=== PATIENT | female | born 1960 | race African-American/Black ===

== ENCOUNTER → 2018-05-04 13:54 | Outpatient (CLI) | payer OTHER, SELFPAY ==
--- NOTE | 2018-05-04 | DI.MG.S_ITS ---
BILATERAL DIGITAL SCREENING MAMMOGRAM 3D/2D WITH CAD: 05/04/2018 CLINICAL: Routine screening. Comparison is made to exam dated: [facility]. There are scattered fibroglandular elements in both breasts. Current study was also evaluated with a Computer Aided Detection (CAD) system. No significant masses, calcifications, or other findings are seen in either breast. There has been no significant interval change. IMPRESSION: NEGATIVE There is no mammographic evidence of malignancy. A 1 year screening mammogram is recommended. This exam was interpreted at Station ID: [id number]. NOTE: For mammograms, a report in lay terms will be sent to the patient. Approximately 15% of breast malignancies will not be visualized mammographically. In the management of a palpable breast mass, a negative mammogram must not discourage biopsy of a clinically suspicious lesion. Electronically Signed By: Gera mercado/olivia:05/04/2018 16:48:27 letter sent: Normal Exam ACR BI-RADS Category 1: Negative 3341F
== END ==
PROVIDERS: Visit Provider Family Medicine
DX: Z12.31 Encounter for screening mammogram for malignant neoplasm of breast (principal)
CPT/HCPCS: 77063; 77067

== ENCOUNTER → 2019-06-25 12:16 | Outpatient (CLI) | payer OTHER, SELFPAY ==
--- NOTE | 2019-06-25 12:19 | DI.MG.S_ITS ---
BILATERAL DIGITAL DIAGNOSTIC MAMMOGRAM 3D/2D: 06/25/2019 CLINICAL: Right breast lump. Comparison is made to exams dated: 05/04/2018 mammogram and 03/04/2016 mammogram - [facility]. The tissue of both breasts is heterogeneously dense. This may lower the sensitivity of mammography. No significant masses, calcifications, or other findings are seen in either breast. IMPRESSION: INCOMPLETE: NEEDS ADDITIONAL IMAGING EVALUATION There is no mammographic abnormality seen in the right breast to correspond with the pain, however, targeted ultrasound of the right breast is recommended and will be performed immediately following this exam. This exam was interpreted at Station ID: [id number]. NOTE: For mammograms, a report in lay terms will be sent to the patient. Approximately 15% of breast malignancies will not be visualized mammographically. In the management of a palpable breast mass, a negative mammogram must not discourage biopsy of a clinically suspicious lesion. Electronically Signed By: Eryn German M.D. lk/:06/25/2019 13:44:12 ACR BI-RADS Category 0: Incomplete 3340F
--- NOTE | 2019-06-25 12:19 | DI.US.S_ITS ---
ULTRASOUND OF RIGHT BREAST: 06/25/2019 CLINICAL: Right breast lump. Comparison is made to exams dated: 06/25/2019 mammogram, 05/04/2018 mammogram, 03/04/2016 ultrasound, and 03/04/2016 mammogram - [facility]. Ultrasound of the right breast was performed on the area of interest. Guiterrez scale images of the real-time examination were reviewed. IMPRESSION: NEGATIVE There is no sonographic evidence of malignancy. There is no mammographic or sonographic abnormality seen in the right breast to correspond with the palpable abnormality and pain, however, clinical followup is recommended. A 1 year screening mammogram is recommended. This exam was interpreted at Station ID: [id number]. Electronically Signed By: Eryn narayan/:06/25/2019 14:18:58 letter sent: Clinical Evaluation Ultrasound BI-RADS: 1 Negative
[2019-06-27 15:59] LABS: Fecal Immunochemical Test NOT DETECTED (NOT DETECTED)
== END ==
PROVIDERS: PCP Student in an Organized Health Care Education/Training Program; Referring Provider Student in an Organized Health Care Education/Training Program; Visit Provider Student in an Organized Health Care Education/Training Program
DX: R92.8 Other abnormal and inconclusive findings on diagnostic imaging of breast (principal); N63.10 Unspecified lump in the right breast, unspecified quadrant; Z12.11 Encounter for screening for malignant neoplasm of colon
CPT/HCPCS: 76642; 77066; 82274; G0279

== ENCOUNTER → 2019-07-29 10:05 | Outpatient (CLI) | payer OTHER, SELFPAY ==
[2019-07-29 11:53] LABS: Free T4, Direct Thyroxine 0.19 ng/dL (0.78-2.19)
[2019-07-30 08:37] LABS: Dehydroepiandrosterone Sulfate 74.2 ug/dL (29.4-220.5)
[2019-08-01 07:12] LABS: Percent Free Testosterone 1.56 % (0.50-2.80); Testosterone Free 0.16 ng/dL (0.10-0.85); Testosterone Total 10.4 ng/dL (.)
== END ==
PROVIDERS: PCP Student in an Organized Health Care Education/Training Program; Referring Provider Student in an Organized Health Care Education/Training Program; Visit Provider Student in an Organized Health Care Education/Training Program
DX: E03.9 Hypothyroidism, unspecified (principal); L66.1 Lichen planopilaris
CPT/HCPCS: 36415; 82627; 84402; 84403; 84439; 84443

== ENCOUNTER → 2019-10-10 09:55 | Outpatient (CLI) | payer OTHER, SELFPAY ==
[2019-10-10 11:49] LABS: TSH w/ Reflex to FT4 0.06 uIU/mL (0.47-4.68)
[2019-10-10 12:18] LABS: Free T4, Direct Thyroxine 1.71 ng/dL (0.78-2.19)
== END ==
PROVIDERS: PCP Student in an Organized Health Care Education/Training Program; Referring Provider Student in an Organized Health Care Education/Training Program; Visit Provider Student in an Organized Health Care Education/Training Program
DX: E03.9 Hypothyroidism, unspecified (principal)
CPT/HCPCS: 36415; 84439; 84443

== ENCOUNTER 2020-02-10 08:49 | Emergency (ER) | payer OTHER, SELFPAY ==
[2020-02-10 08:59] VITALS: BP 159/107; PULSE 88; RESP 14; TEMP 36.9; O2SAT 100; BMI 26.1
--- NOTE | 2020-02-10 09:15 | ED_ITS ---
HPI - Wound/Laceration General Chief Complaint: Wound/Laceration Stated Complaint: busted lip Time Seen by Provider: 02/10/20 08:54 Source: patient and family Mode of arrival: Ambulatory History of Present Illness HPI narrative: Patient here with . Sent here from urgent care. Patient has right lower lip laceration inside/mucosal surface. Does not not not cross the vermilion border. It is not through and through. Tetanus up-to-date less than 1 year. Denies any other injuries. Patient was caring a mere and fail. She kept the mere above her to prevent falling on top of her and breaking. She states the corner of the mere did gouge her lower lip. Denies any other injuries. No bleeding at this time Related Data Home Medications Medication Instructions Recorded Confirmed Liver supplement PO DAILY 06/18/19 02/10/20 Skin and nails supp PO BID 06/18/19 02/10/20 ascorbic acid (vitamin C) 100 mg 100 mg PO DAILY 06/18/19 02/10/20 tablet cholecalciferol (vitamin D3) 25 1,000 unit PO BID cap 06/18/19 02/10/20 mcg (1,000 unit) capsule mecobalamin (vitamin B12) 1,000 1,000 mcg PO BID tab 06/18/19 02/10/20 mcg chewable tablet omega-3 fatty acids 1,000 mg 1,000 mg PO BID 06/18/19 02/10/20 capsule symbiotic probiotics PO DAILY 06/18/19 02/10/20 Previous Rx's Medication Instructions Recorded atenolol 25 mg tablet 25 mg PO BID #60 tab 10/10/19 finasteride 5 mg tablet 2.5 mg PO .every other day #30 tab 10/10/19 levothyroxine 88 mcg tablet 88 mcg PO DAILY #90 tab 10/11/19 diclofenac sodium 1 % topical gel 2 gram TOP QID #100 gram 10/17/19 Allergies Allergy/AdvReac Type Severity Reaction Status Date / Time codeine [CODEINE] Allergy Unknown Unverified 02/10/20 08:32 latex [LATEX] Allergy Unknown Unverified 02/10/20 08:32 Sulfa (Sulfonamide Allergy Unknown Unverified 02/10/20 08:32 Antibiotics) [SULFA (SULFONAMIDE ANTIBIOTICS)] Review of Systems Review of Systems Narrative: GENERAL: Denies chills, fatigue, malaise, fever, sweats. HEENT: Denies sinus pain, ear pain, sore throat, difficulty swallowing, complains of laceration to right lower lip. RESPIRATORY: Denies dyspnea, cough CARDIOVASCULAR: Denies chest pain, palpitations, edema, GASTROINTESTINAL: Denies nausea, vomiting, abdominal pain, diarrhea, constipation, melena. MUSCULOSKELETAL: denies muscle or bony pain SKIN: Denies rash, skin lesions NEUROLOGIC: Denies weakness, headache, numbness, change in speech, confusion PSYCHIATRIC: No SI or HI or hallucinations ROS Unobtainable: All systems reviewed & are unremarkable except as noted in HPI and below Patient History Medical History Fibroids (Inactive) Hemorrhoid (Inactive ~1987) Lip laceration (Acute) Ovarian cyst (Inactive) Shoulder pain (Inactive) Surgical History Status post breast biopsy Status post delivery Status post laparoscopic hysterectomy (Resolved) Family History Grandfather Cancer Sister Age: 59 Mental health problem Social History Smoking Status: Never smoker Smoking Status: Never smoker alcohol intake frequency: 0-2 drinks per day Substance Use Type: does not use Exam Narrative Exam Narrative: GENERAL: patient appears stated age. Well-nourished, well- developed patient, in no distress, not toxic not dyspneic HEAD: Normocephalic. Atraumatic EYES: Pupils equal round and reactive. No scleral icterus. No injection no discharge ENT: Mucous membranes moist. No drooling no tongue elevation no trismus no malocclusion, mild tenderness to left lower front incisor but no fracture. No surrounding gum bruising bleeding or laceration. Examination of the lips. At the right lower lip proximal to the vermilion border, does not cross the vermilion border, there is a 1.5 cm triangular flap like laceration that is superficial. Q-tip used to explore wound. Bloodless field. Based visualized. No muscle injury seen. No foreign body. Laceration edges aligned evenly. Irrigated with normal saline. No bleeding. NEURO: AOx4. SKIN: Warm and dry PSYCH: Patient anxious. Blood pressure noted. Initial Vital Signs Initial Vital Signs: Vital Signs Temperature 98.4 F 02/10/20 08:59 Pulse Rate 88 02/10/20 08:59 Respiratory Rate 14 02/10/20 08:59 Blood Pressure 159/107 H 02/10/20 08:59 Pulse Oximetry 100 02/10/20 08:59 Course Course Course Narrative: Paged out to ENT, awaiting call back. Patient is not want wait for call back. Desires discharge home. 9:25 a.m. Reevaluation(s) Reevaluation #1: Patient much more comfortable less anxious after discussion about wound care and understands no stitching for mucosal layer. She is comfortable with wound care at home. And follow-up. Time: 09:23 Consultations Consultation #1: Spoke with ent, Dr. logan, agrees with treatment plan follow-up this week. No stitches Time: 09:32 Vital Signs Vital signs: Vital Signs - 8 hr 02/10/20 08:59 Temperature 98.4 F Pulse Rate 88 Respiratory Rate 14 Blood Pressure 159/107 H Pulse Oximetry 100 MDM - Wound/Laceration Differential Diagnosis Differential diagnosis: Likely avulsion of skin MDM Narrative Medical decision making narrative: Patient and agree with wound care and treatment plan. Understands no stitching at this time. Does not cross the vermilion border and is on mucosal surface which has risk of tearing and returning with any stitches. Reviewed with patient wound irrigation with normal saline. Patient given saline flushes. She will continue at home. No antibiotics indicated this time. No imaging indicated this time. Based visualized no foreign body. Mirror did not break in her mouth. Denies any other injuries. Appropriate for discharge home. Discharge Plan Departure Patient Disposition: Home Clinical Impression: Lip laceration Qualifiers: Encounter type: initial encounter Qualified Code(s): S01.511A - Laceration without foreign body of lip, initial encounter Discharge Date/Time: 02/10/20 09:35 Instructions: DI for Avulsion Laceration (Not Requiring Sutures) Activity Restrictions/Additional Instructions: Called provided office today for office recheck this week. Continue with soft foods. No crunchy or hard foods. Irrigate/use saline flush to the wound after each meal and as needed to keep wound free of debris/food products. Keep wound out of sun exposure. Return if worse or if any questions or concerns. Phone number for Dr. Tony as well as Dr. Giraldo given. They are in the same office Prescriptions: No Action mecobalamin (vitamin B12) 1,000 mcg tablet,chewable 1,000 mcg PO BID RF: 0 cholecalciferol (vitamin D3) 25 mcg (1,000 unit) capsule 1,000 unit PO BID RF: 0 Skin and nails supp PO BID RF: 0 Liver supplement PO DAILY RF: 0 omega-3 fatty acids [Fish Oil Concentrate] 1,000 mg capsule 1,000 mg PO BID RF: 0 symbiotic probiotics PO DAILY RF: 0 ascorbic acid (vitamin C) 100 mg tablet 100 mg PO DAILY RF: 0 levothyroxine 88 mcg tablet 88 mcg PO DAILY Qty: 90 RF: 3 diclofenac sodium 1 % gel 2 gram TOP QID Qty: 100 RF: 0 atenolol 25 mg tablet 25 mg PO BID Qty: 60 RF: 0 finasteride 5 mg tablet 2.5 mg PO .every other day Qty: 30 RF: 3 Referrals: Jonathan Alvares MD [Primary Care Provider] - Jonathan Tony MD [Physician] - Bunny Giraldo MD [Physician] -
--- NOTE | 2020-02-10 09:33 | PC.NURSE ---
wound flushed with saline flushed by provider. Patient instructed to keep clean and wound will heal on its own. a hand full of flushes given to patient per Dr jordan to keep wound clean with.
== END 2020-02-10 09:35 | disposition home or self-care (01) ==
PROVIDERS: Emergency Provider Emergency Medicine; PCP Student in an Organized Health Care Education/Training Program
DX: S01.511A Laceration without foreign body of lip, initial encounter (principal)
CPT/HCPCS: 99281; 99282

== ENCOUNTER → 2020-07-09 14:11 | Outpatient (CLI) | payer OTHER, SELFPAY ==
--- NOTE | 2020-07-09 | DI.MG.S_ITS ---
BILATERAL DIGITAL SCREENING MAMMOGRAM 3D/2D WITH CAD: 07/09/2020 CLINICAL: Routine Screening. Comparison is made to exams dated: 06/25/2019 mammogram, 05/04/2018 mammogram, and 03/04/2016 mammogram - [facility]. The tissue of both breasts is heterogeneously dense. This may lower the sensitivity of mammography. Current study was also evaluated with a Computer Aided Detection (CAD) system. No significant masses, calcifications, or other findings are seen in either breast. There has been no significant interval change. IMPRESSION: NEGATIVE There is no mammographic evidence of malignancy. A 1 year screening mammogram is recommended. This exam was interpreted at Station ID: [id number]. NOTE: For mammograms, a report in lay terms will be sent to the patient. Approximately 15% of breast malignancies will not be visualized mammographically. In the management of a palpable breast mass, a negative mammogram must not discourage biopsy of a clinically suspicious lesion. Electronically Signed By: Gera mercado/olivia:07/09/2020 14:42:17 letter sent: Normal Exam ACR BI-RADS Category 1: Negative 3341F
== END ==
PROVIDERS: PCP Student in an Organized Health Care Education/Training Program; Referring Provider Student in an Organized Health Care Education/Training Program; Visit Provider Student in an Organized Health Care Education/Training Program
DX: Z12.31 Encounter for screening mammogram for malignant neoplasm of breast (principal)
CPT/HCPCS: 77063; 77067

== ENCOUNTER → 2020-08-11 14:04 | Outpatient (CLI) | payer OTHER, SELFPAY ==
[2020-08-11 14:19] LABS: Add Manual Diff / Slide Review NO; Basophils Absolute Auto 100 /uL (0-100); Basophils Percent Auto 1.4 % (0-2); Eosinophils Absolute Auto 300 /uL (0-450); Eosinophils Percent Auto 6.3 % (2-4); Hemoglobin 13.7 g/dL (12.0-16.0); Lymphocytes Absolute Auto 1600 /uL (1100-4500); Lymphocytes Percent Auto 39.2 % (25-40); Mean Corpuscular HGB Conc 33.5 % (30-36); Mean Corpuscular Hemoglobin 26.3 PG (26-34); Mean Corpuscular Volume 78.6 fL (80-100); Monocytes Absolute Auto 300 /uL (0-900); Monocytes Percent Auto 8.2 % (3-14); Neutrophils Absolute Auto 1800 /uL (1500-7000); Neutrophils Percent Auto 44.9 % (50-75); Platelet Count 207 X10^3/uL (150-400); Red Blood Cell Count 5.22 X10^6/uL (4.0-5.2); Red Cell Distribution Width 13.9 % (11.6-14.8)
[2020-08-11 14:32] LABS: Alanine Aminotransferase 20 IU/L (<35); Albumin 4.6 g/dL (3.5-5.0); Albumin Globulin Ratio 1.2 (1.0-2.8); Alkaline Phosphatase 76 U/L (38-126); Aspartate Aminotransferase 33 IU/L (14-36); BUN Creatinine Ratio 16.9 (6-22); Bilirubin Total 0.3 mg/dL (0.2-1.3); Blood Urea Nitrogen 13 mg/dL (7-17); Carbon Dioxide 28 mmol/L (22-32); Chloride 107 mmol/L (98-107); Estimated Glomerular Filt Rate > 60.0 mL/min (>60); Globulin 3.7 g/dL (1.7-4.1); Glucose 100 mg/dL (70-100); HEMOLYSIS < 15 (0-50); Potassium 4.8 mmol/L (3.4-5.1); Sodium 140 mmol/L (137-145); Total Protein 8.3 g/dL (6.3-8.2)
[2020-08-13 00:44] LABS: Varicella IgG Antibody 2645 index (Immune >165)
== END ==
PROVIDERS: PCP Student in an Organized Health Care Education/Training Program; Referring Provider Student in an Organized Health Care Education/Training Program; Visit Provider Student in an Organized Health Care Education/Training Program
DX: B02.9 Zoster without complications (principal)
CPT/HCPCS: 36415; 80053; 85025; 86787

== ENCOUNTER → 2021-07-28 16:04 | Outpatient (CLI) | payer OTHER, SELFPAY ==
--- NOTE | 2021-07-28 16:05 | DI.MG.S_ITS ---
BILATERAL DIGITAL SCREENING MAMMOGRAM 3D/2D WITH CAD: 07/28/2021 CLINICAL: Routine screening. Comparison is made to exams dated: 07/09/2020 mammogram, 06/25/2019 mammogram, and 05/04/2018 mammogram - [facility]. The tissue of both breasts is heterogeneously dense. This may lower the sensitivity of mammography. Current study was also evaluated with a Computer Aided Detection (CAD) system. No significant masses, calcifications, or other findings are seen in either breast. There has been no significant interval change. IMPRESSION: NEGATIVE There is no mammographic evidence of malignancy. A 1 year screening mammogram is recommended. This exam was interpreted at Station ID: [id number]. NOTE: For mammograms, a report in lay terms will be sent to the patient. Approximately 15% of breast malignancies will not be visualized mammographically. In the management of a palpable breast mass, a negative mammogram must not discourage biopsy of a clinically suspicious lesion. Electronically Signed By: Ezra reilly/olivia:07/28/2021 16:45:46 letter sent: Normal Exam ACR BI-RADS Category 1: Negative 3341F
== END ==
PROVIDERS: PCP Student in an Organized Health Care Education/Training Program; Referring Provider Student in an Organized Health Care Education/Training Program; Visit Provider Student in an Organized Health Care Education/Training Program
DX: Z12.31 Encounter for screening mammogram for malignant neoplasm of breast (principal)
CPT/HCPCS: 77063; 77067

== ENCOUNTER → 2021-08-04 13:20 | Outpatient (CLI) | payer OTHER, SELFPAY ==
[2021-08-04 14:34] LABS: C-Reactive Protein Quant 0.7 mg/dL (<1.0); Erythrocyte Sedimentation Rate 18 MM/HR (0-20)
[2021-08-06 00:08] LABS: Anti Thyroglobulin Antibody <1.0 IU/mL (0.0-0.9); Thyroid Peroxidase Antibodies >600 IU/mL (0-34)
[2021-08-08 00:20] LABS: ANA Screen, IFA Negative (.)
== END ==
PROVIDERS: PCP Student in an Organized Health Care Education/Training Program; Referring Provider Student in an Organized Health Care Education/Training Program; Visit Provider Student in an Organized Health Care Education/Training Program
DX: E03.9 Hypothyroidism, unspecified (principal); I73.00 Raynaud's syndrome without gangrene
CPT/HCPCS: 36415; 85651; 86038; 86140; 86376; 86800

== ENCOUNTER → 2021-09-01 12:54 | Outpatient (CLI) | payer OTHER, SELFPAY ==
--- NOTE | 2021-09-01 12:58 | DI.US.S_ITS ---
PROCEDURE: US SOFT TISSUE HEAD AND NECK INDICATIONS: PROMINENT LYMPH NODE RIGHT ANTERIOR CERVICAL CHAIN TECHNIQUE: Real-time scanning was performed of the neck region of interest, with image documentation. COMPARISON: [facility], , SOFT TISSUE HEAD OR NECK, 12/07/2016, 7:49. FINDINGS: The patient-indicated palpable abnormality a corresponds to a 0.8 x 0.6 x 0.8 cm simple appearing cyst in the right parotid gland. Small normal appearing lymph nodes are also seen in the right parotid region. IMPRESSION: Simple appearing 0.8 cm cyst in the right parotid gland corresponds to the palpable abnormality. Dictated by: Mendoza Joseph M.D. on 09/01/2021 at 15:48 Approved by: Mendoza Joseph M.D. on 09/01/2021 at 15:51
--- NOTE | 2021-09-01 12:58 | DI.RAD.S_ITS ---
PROCEDURE: FL BARIUM SWALLOW W AIR COMPARISON: None. INDICATIONS: retrosternal pain; dysphagia FINDINGS: No mucosal abnormalities. Normal peristalsis is visualized throughout the esophagus. No stenosis. There was prompt flow of a barium tablet through the esophagus into the stomach. Limited visualization of the gastric fundus has a normal appearance. No gastroesophageal reflux could be elicited in the upright or prone position despite provocative maneuvers. IMPRESSION: 1. Normal barium esophagram. No hiatal hernia, esophageal dysmotility, or gastroesophageal reflux. No mucosal abnormalities. Dictated by: Eryn German M.D. on 09/01/2021 at 17:15 Approved by: Eryn German M.D. on 09/01/2021 at 17:17
== END ==
PROVIDERS: PCP Student in an Organized Health Care Education/Training Program; Referring Provider Student in an Organized Health Care Education/Training Program; Visit Provider Student in an Organized Health Care Education/Training Program
DX: R13.10 Dysphagia, unspecified; K11.6 Mucocele of salivary gland
CPT/HCPCS: 74221; 76536

== ENCOUNTER → 2021-10-15 14:07 | Outpatient (CLI) | payer OTHER, SELFPAY ==
--- NOTE | 2021-10-15 | PATH_ITS ---
Note [facility] Accession Number: [id number] TESTS RESULT FLAG UNITS REF RANGE LAB Clinician Provided Cytology Information No. of containers..01 Other (Miscellaneous) Source: RIGHT PAROTID CYST A DIAGNOSIS: RIGHT PAROTID CYST A INADEQUATE, INSUFFICIENT CELLS FOR STUDY. THIS INTERPRETATION INCLUDES EVALUATION OF A CELL BLOCK. COMMENT: Non-diagnostic specimen consisting of acellular, non-mucinous cyst fluid. This case is also reviewed by Dr. Destinee Pagan who concurs with the given interpretation. Pathologist ICD10: 01 R22.1 Signed out by: Keke Acharya MD, Pathologist NPI- [id number] Performed by: Jorge Pompa, Education Spec ([facility]) Gross description: 01 0.2 CC, RED, CLEAR RECEIVED: FRESH IN 10 ML SYRINGE. /VDU 10/18/2021 1017 Local FLAG LEGEND: L-Low Normal,H-High Normal,LL-Alert Low,HH-Alert High <-Panic Low,>-Panic High,A-Abnormal,AA-Critical Abnormal Performed at: 01 =Z [facility] [address], [place] [address] Grea Martins MD, Performed at: [facility] [address], [place], [place] [id number] MD Gera Martins MD Phone: [phone]
--- NOTE | 2021-10-15 14:09 | DI.US.S_ITS ---
PROCEDURE: US FINE NEEDLE ASPIRATION INDICATIONS: FNA of R parotid cyst TECHNIQUE: The indications, alternatives, benefits, risks, and complications of the procedure were explained to the patient. Written informed consent was obtained and placed in the chart. The area of interest was examined sonographically and a site was chosen for ultrasound guided percutaneous sampling. The skin was prepared and draped in the usual fashion, and anesthetized with 1% lidocaine infiltrated from the skin down to the lesion. A bandage was applied to the area of access at completion of the study. COMPARISON: Located within [facility], SOFT TISSUE HEAD OR NECK, 12/07/2016, 7:49. Located within [facility], US SOFT TISSUE HEAD AND NECK, 09/01/2021, 14:14. FINDINGS: Location(s) of lesion(s) sampled: Right parotid cyst [place]: 22 gauge hypodermic needle. Fluid aspirate: 0.5 cc; clear. Medications: 1% lidocaine for local anaesthesia. Complications: None. IMPRESSION: Successful ultrasound-guided needle aspiration of a right parotid cyst. Fluid aspirate was sent for cytology. Cytology results pending. Dictated by: Moisés Alford M.D. on 10/15/2021 at 16:53 Approved by: Moisés Alford M.D. on 10/15/2021 at 16:56
== END ==
PROVIDERS: PCP Student in an Organized Health Care Education/Training Program; Referring Provider Student in an Organized Health Care Education/Training Program; Visit Provider Student in an Organized Health Care Education/Training Program
DX: K11.6 Mucocele of salivary gland (principal)
CPT/HCPCS: 10005

== ENCOUNTER → 2022-02-15 16:30 | Outpatient (CLI) | payer OTHER, SELFPAY ==
--- NOTE | 2022-02-15 16:33 | DI.RAD.S_ITS ---
PROCEDURE: XR LUMBAR SPINE 2-3V INDICATIONS: Left lower back injury TECHNIQUE: 3 views of the lumbar spine were acquired. COMPARISON: None. FINDINGS: Bones: 5 srn-jfv-oiflkhl vertebrae are present. Small vertebral body osteophytes. L5-S1 facet joint hypertrophy. There is normal bony alignment. No vertebral body compression fractures. No suspicious bony lesions. Soft tissues: Overlying bowel gas pattern is normal. No suspicious soft tissue calcifications. IMPRESSION: Mild degenerative change in the lumbar spine is appreciated. Dictated by: Ezra Lomeli M.D. on 02/15/2022 at 16:49 Approved by: Ezra Lomeli M.D. on 02/15/2022 at 16:50
--- NOTE | 2022-02-15 16:33 | DI.RAD.S_ITS ---
PROCEDURE: XR WRIST RT MIN 3V INDICATIONS: Right wrist injury-snuffbox tenderness TECHNIQUE: 4 views of the wrist were acquired. COMPARISON: None. FINDINGS: Bones: No fractures or dislocations. No suspicious bony lesions. Scaphoid view: Intact Soft tissues: No suspicious soft tissue calcifications. IMPRESSION: No acute osseous abnormality. Dictated by: Ezra Lomeli M.D. on 02/15/2022 at 16:51 Approved by: Ezra Lomeli M.D. on 02/15/2022 at 16:52
== END ==
PROVIDERS: PCP Student in an Organized Health Care Education/Training Program; Referring Provider Registered Nurse; Visit Provider Registered Nurse
DX: M47.817 Spondylosis without myelopathy or radiculopathy, lumbosacral region (principal); M54.50 Low back pain, unspecified; M79.605 Pain in left leg; M25.531 Pain in right wrist
CPT/HCPCS: 72100; 73110

== ENCOUNTER → 2022-07-14 10:15 | Outpatient (CLI) | payer OTHER, SELFPAY ==
[2022-07-15 18:05] LABS: Fecal Immunochemical Test Negative (Negative)
== END ==
PROVIDERS: PCP Student in an Organized Health Care Education/Training Program; Referring Provider Student in an Organized Health Care Education/Training Program; Visit Provider Student in an Organized Health Care Education/Training Program
DX: Z12.11 Encounter for screening for malignant neoplasm of colon (principal)
CPT/HCPCS: 82274

== ENCOUNTER → 2022-08-03 07:45 | Outpatient (CLI) | payer OTHER, SELFPAY ==
--- NOTE | 2022-08-03 | DI.MG.S_ITS ---
BILATERAL DIGITAL SCREENING MAMMOGRAM 3D/2D WITH CAD: 08/03/2022 CLINICAL: Routine screening. Comparison is made to exams dated: 07/28/2021 mammogram, 07/09/2020 mammogram, and 06/25/2019 [facility] Both breasts are heterogeneously dense, which may obscure small masses (category c / 51-75% glandular tissue). Current study was also evaluated with a Computer Aided Detection (CAD) system. No significant masses, calcifications, or other findings are seen in either breast. There has been no significant interval change. IMPRESSION: NEGATIVE There is no mammographic evidence of malignancy. A 1 year screening mammogram is recommended. Based on the Tyrer Cuzick model (a risk assessment model) the patient's lifetime risk is 10.3% and her 10 year risk is 4.3%. According to the ACR, ACS, and NCCN guidelines, an annual breast MRI exam along with mammogram is recommended if the patient's lifetime risk is 20% or greater. This exam was interpreted at Station ID: [id number]. NOTE: For mammograms, a report in lay terms will be sent to the patient. Approximately 15% of breast malignancies will not be visualized mammographically. In the management of a palpable breast mass, a negative mammogram must not discourage biopsy of a clinically suspicious lesion. Electronically Signed By: bAdoul leahy/olivia:08/03/2022 08:37:58 letter sent: Normal Exam ACR BI-RADS Category 1: Negative 3341F
== END ==
PROVIDERS: PCP Student in an Organized Health Care Education/Training Program; Referring Provider Student in an Organized Health Care Education/Training Program; Visit Provider Student in an Organized Health Care Education/Training Program
DX: Z12.31 Encounter for screening mammogram for malignant neoplasm of breast (principal)
CPT/HCPCS: 77063; 77067

== ENCOUNTER → 2022-11-04 16:33 | Outpatient (CLI) | payer OTHER, SELFPAY ==
--- NOTE | 2022-11-04 16:34 | DI.RAD.S_ITS ---
PROCEDURE: XR KNEE RT 3V INDICATIONS: knee pain TECHNIQUE: 3 views of the knee were acquired. COMPARISON: None. FINDINGS: Bones: No fractures or dislocations. Rsjz-yi-ebfidqza tricompartmental osteoarthritis is seen most notably in medial femoral tibial compartment with joint space narrowing, subchondral sclerosis and marginal osteophyte formation. No suspicious bony lesions. Soft tissues: No joint effusion. No suspicious soft tissue calcifications. 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 No fracture or dislocation. No significant joint effusion. Dictated by: Julian Buchanan M.D. on 11/04/2022 at 18:16 Approved by: Julian Buchanan M.D. on 11/04/2022 at 18:16
--- NOTE | 2022-11-04 16:34 | DI.RAD.S_ITS ---
PROCEDURE: XR KNEE LT 3V INDICATIONS: knee pain TECHNIQUE: 3 views of the knee were acquired. COMPARISON: None. FINDINGS: Bones: No fractures or dislocations. Hids-qj-vrngelfk tricompartmental osteoarthritis in left knee is seen most notably in medial femoral tibial compartment. No patellar subluxation. No suspicious bony lesions. Soft tissues: No joint effusion. No suspicious soft tissue calcifications. 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 No fracture or dislocation. No significant joint effusion. Dictated by: Julian Buchanan M.D. on 11/04/2022 at 18:15 Approved by: Julian Buchanan M.D. on 11/04/2022 at 18:15
== END ==
PROVIDERS: PCP Internal Medicine; Referring Provider Internal Medicine; Visit Provider Internal Medicine
DX: M17.0 Bilateral primary osteoarthritis of knee (principal); M25.561 Pain in right knee; M25.562 Pain in left knee
CPT/HCPCS: 73562

== ENCOUNTER → 2023-01-10 09:07 | Outpatient (CLI) | payer OTHER, SELFPAY ==
[2023-01-10 10:17] LABS: Hematocrit 43.3 % (36-46); Hemoglobin 14.5 g/dL (12.0-16.0); Mean Corpuscular HGB Conc 33.6 % (30-36); Mean Corpuscular Hemoglobin 26.2 PG (26-34); Mean Corpuscular Volume 78.1 fL (80-100); Platelet Count 209 X10^3/uL (150-400); Red Blood Cell Count 5.55 X10^6/uL (4.0-5.2); Red Cell Distribution Width 14.1 % (11.6-14.8); White Blood Cell Count 3.7 X10^3/uL (4.5-11.0)
[2023-01-10 10:39] LABS: Alanine Aminotransferase 19 IU/L (<35); Albumin 4.5 g/dL (3.5-5.0); Albumin Globulin Ratio 1.3 (1.0-2.8); Alkaline Phosphatase 67 U/L (38-126); Aspartate Aminotransferase 29 IU/L (14-36); BUN Creatinine Ratio 13.6 (6-22); Bilirubin Total 0.4 mg/dL (0.2-1.3); Blood Urea Nitrogen 11 mg/dL (7-17); Calcium 9.7 mg/dL (8.4-10.2); Carbon Dioxide 28 mmol/L (22-32); Chloride 105 mmol/L (98-107); Cholesterol 237 mg/dL (140-199); Estimated Glomerular Filt Rate > 60 mL/min (>60); Globulin 3.6 g/dL (1.7-4.1); Glucose 97 mg/dL (80-110); HEMOLYSIS < 15 (0-50); Potassium 5.3 mmol/L (3.4-5.1); Sodium 140 mmol/L (137-145); Total Protein 8.1 g/dL (6.3-8.2); Triglycerides 114 mg/dL (35-150)
[2023-01-10 10:51] LABS: HDL Cholesterol 122 mg/dL (40-60); LDL Cholesterol Calculated 92 mg/dL (<100)
[2023-01-10 11:07] LABS: TSH w/ Reflex to FT4 1.76 uIU/mL (0.47-4.68)
== END ==
PROVIDERS: PCP Internal Medicine; Referring Provider Internal Medicine; Visit Provider Internal Medicine
DX: E03.9 Hypothyroidism, unspecified (principal); E78.2 Mixed hyperlipidemia; I47.1 Supraventricular tachycardia
CPT/HCPCS: 36415; 80053; 80061; 84443; 85027

== ENCOUNTER → 2023-08-07 09:16 | Outpatient (CLI) | payer OTHER, SELFPAY ==
--- NOTE | 2023-08-07 | DI.MG.S_ITS ---
BILATERAL DIGITAL SCREENING MAMMOGRAM 3D/2D WITH CAD: 08/07/2023 CLINICAL: Routine screening. Comparison is made to exams dated: 08/03/2022 mammogram, 07/28/2021 mammogram, and 07/09/2020 mammogram - [facility]. There are scattered areas of fibroglandular density in both breasts (category b / 25%-50% glandular tissue). Current study was also evaluated with a Computer Aided Detection (CAD) system. No significant masses, calcifications, or other findings are seen in either breast. There has been no significant interval change. IMPRESSION: NEGATIVE There is no mammographic evidence of malignancy. A 1 year screening mammogram is recommended. Based on the Tyrer Cuzick model (a risk assessment model) the patient's lifetime risk is 6.7% and her 10 year risk is 2.9%. According to the ACR, ACS, and NCCN guidelines, an annual breast MRI exam along with mammogram is recommended if the patient's lifetime risk is 20% or greater. This exam was interpreted at Station ID: [id number]. NOTE: For mammograms, a report in lay terms will be sent to the patient. Approximately 15% of breast malignancies will not be visualized mammographically. In the management of a palpable breast mass, a negative mammogram must not discourage biopsy of a clinically suspicious lesion. Electronically Signed By: Eryn narayan/olivia:08/07/2023 13:37:25 letter sent: Normal Exam ACR BI-RADS Category 1: Negative 3341F
== END ==
LOC: MAMMO 09:17
PROVIDERS: PCP Internal Medicine; Referring Provider Internal Medicine; Visit Provider Internal Medicine
DX: Z12.31 Encounter for screening mammogram for malignant neoplasm of breast (principal); R92.323 Mammographic fibroglandular density, bilateral breasts
CPT/HCPCS: 77063; 77067

== ENCOUNTER → 2023-12-29 08:16 | Outpatient (CLI) | payer OTHER, SELFPAY ==
--- NOTE | 2023-12-29 | DI.MRI.S_ITS ---
PROCEDURE: MR LUMBAR SPINE WO CON INDICATIONS: Spinal stenosis, lumbar region with neurogenic claudication TECHNIQUE: Noncontrast sagittal T1 spin echo and T2 fast echo, sagittal STIR, and T2 fast spin echo through the lumbar spine. In cases with scoliosis, additional coronal T2 fast spin echo may be performed. COMPARISON: [facility], CR, XR LUMBAR SPINE 2 OR 3 VIEWS, 05/26/2023, 15:10. FINDINGS: Image quality: Excellent. Alignment and Curvature: There is normal bony alignment. Bone Marrow: Marrow is of normal overall signal. No acute vertebral body compression fractures. Spinal Cord: Conus medullaris terminates at the L1 level. Visualized cord demonstrates normal signal and size. Paraspinous Soft Tissues: No paravertebral masses. T12-L1: Normal appearance. L1-L2: Loss of disc signal. No significant disc bulge, canal stenosis or neural foraminal narrowing. Bilateral facet arthrosis is seen. L2-L3: Loss of disc signal. Bilateral facet arthrosis and hypertrophy of ligamentum flavum is seen. No significant disc bulge, canal stenosis or neural foraminal narrowing. L3-L4: Loss of disc signal and bilateral facet arthrosis with hypertrophy of ligamentum flavum. Diffuse disc bulge with mild central canal stenosis, no significant neural foraminal narrowing. L4-L5: Loss of disc signal and disc height. Broad-based disc bulge and bilateral facet arthrosis with hypertrophy of ligamentum flavum causing [id number] central canal stenosis and left worse than right bilateral neural foraminal narrowing. Bulging disc is seen contacting bilateral L4 nerve roots. L5-S1: Normal appearance. IMPRESSION: 1. No marrow edema. No acute compression fracture or spondylolisthesis. 2. Mild degenerative disc disease throughout lumbar spine most notably involving L4-5 level with [id number] central canal stenosis and bilateral neural foraminal narrowing as described above. Dictated by: Julian Buchanan M.D. on 12/29/2023 at 11:18 Approved by: Julian Buchnaan M.D. on 12/29/2023 at 11:22
== END ==
PROVIDERS: PCP Internal Medicine; Referring Provider Orthopaedic Surgery Orthopaedic Surgery of the Spine; Visit Provider Orthopaedic Surgery Orthopaedic Surgery of the Spine
DX: M48.062 Spinal stenosis, lumbar region with neurogenic claudication (principal); M51.36 Other intervertebral disc degeneration, lumbar region; M47.816 Spondylosis without myelopathy or radiculopathy, lumbar region
CPT/HCPCS: 72148

== ENCOUNTER → 2024-08-08 08:42 | Outpatient (CLI) | payer OTHER, SELFPAY ==
--- NOTE | 2024-08-08 08:43 | DI.MG.S_ITS ---
MM screening mammo BI: 08/08/2024. BI-RADS: 1 CLINICAL: 64-year old female for bilateral screening mammogram. Tyrer-Cuzick lifetime risk of 9.7%. No personal or first-degree family history of breast cancer. Current reported family history of breast cancer: paternal aunt. PRIOR EXAMS 08/07/2023, 08/03/2022, 07/28/2021, 07/09/2020, 06/25/2019, 05/04/2018, 03/04/2016. MAMMOGRAPHY TECHNIQUE: 2D and 3D (tomosynthesis) digital mammographic views obtained, with additional images as needed for full coverage. Current study was also evaluated with a Computer Aided Detection (CAD) system. DENSITY B. There are scattered areas of fibroglandular density. MAMMOGRAPHY FINDINGS Bilateral: No suspicious mass, asymmetry, microcalcification, or other abnormality seen. No significant change from comparison. IMPRESSION: * No evidence of malignancy. RECOMMENDATIONS Bilateral * Annual screening mammography. OVERALL ASSESSMENT CATEGORY BI-RADS-1: Negative. [employer] recommends annual screening mammography beginning at age 40 for women with average risk of breast cancer. ELECTRONICALLY SIGNED: Joselin Sparks M.D. on 08/08/2024 at 12:07:38 PM PT Interpreting Station ID: [id number]
== END ==
PROVIDERS: PCP Internal Medicine; Referring Provider Internal Medicine; Visit Provider Internal Medicine
DX: Z12.31 Encounter for screening mammogram for malignant neoplasm of breast (principal); Z80.3 Family history of malignant neoplasm of breast
CPT/HCPCS: 77063; 77067

== ENCOUNTER → 2024-10-08 08:00 | Outpatient (CLI) | payer OTHER, SELFPAY ==
--- NOTE | 2024-10-08 08:02 | DI.MRI.S_ITS ---
PROCEDURE: MR KNEE RT WO/W CON INDICATIONS: Mass of right/left knee TECHNIQUE: Noncontrast sagittal PD fast spin echo and T2 fast spin echo with fat saturation, sagittal 3-D FLASH with fat saturation; coronal T1 spin echo and PD fast spin echo with fat saturation, and axial T1 spin echo and PD fast spin echo with fat saturation through the knee. Post-contrast axial, coronal, and sagittal T1 spin echo with fat saturation through the knee. COMPARISON: [facility], CR, XR KNEE ARTHRITIC SERIES BI, 08/29/2024, 11:32. FINDINGS: Image quality: Excellent. Menisci: In the medial meniscus, there is an undersurface flap tear of the meniscus body, with a small meniscus flap extending into the inferior gutter (13:23). Mild extrusion of the medial meniscus body. In the lateral meniscus, there is complex, predominantly horizontal longitudinal tear of the meniscus body, extending to the anterior horn. There is a small meniscus flap arising from the meniscus body extending into the superior gutter. No extrusion of the lateral meniscus body. Cruciate ligaments: The anterior and posterior cruciate ligaments appear intact. Medial structures: The medial collateral ligament appears intact. The posterior oblique ligament, semimembranosus tendon insertions, and oblique popliteal liagment, and meniscocapsular junction appear intact. Visualized portions of the pes anserinus tendons appear normal. No abnormal bursal fluid. Lateral structures: Mild tendinosis of the distal biceps femoris tendon. Mild sprain of the proximal fibular collateral ligament. The popliteus tendon and muscle are unremarkable. The iliotibial band is intact. Anterior structures: The distal quadriceps tendon is intact. Mild tendinosis of the proximal patellar tendon. Marked Hoffa's fat pad edema. Alignment of the patellofemoral compartment is anatomic. The medial and the lateral patellofemoral ligaments are intact. Bones and cartilage: The cartilage of the patellofemoral compartment is well maintained. In the medial compartment, the cartilage is well maintained. In the lateral compartment, there is mild chondral thinning in the weight-bearing portion of the lateral femoral condyle, and of the lateral tibial plateau, with mild subchondral marrow edema in the lateral tibial plateau. No acute fracture. Joint space: Small knee effusion. No popliteal cyst. Popliteal vasculature is unremarkable. No intra-articular body. No suspicious enhancing soft tissue mass. IMPRESSION: 1. Tear of the medial and lateral meniscus with meniscus flap. 2. Marked Hoffa's fat pad edema. 3. Mild chondrosis of the lateral compartment. 4. No suspicious enhancing soft tissue mass. Dictated by: Laury Rehman M.D. on 10/09/2024 at 10:22 Approved by: Laury Rehman M.D. on 10/09/2024 at 10:34
--- NOTE | 2024-10-08 08:02 | DI.MRI.S_ITS ---
PROCEDURE: MR KNEE LT WO/W CON INDICATIONS: Mass of right/left knee TECHNIQUE: Noncontrast sagittal PD fast spin echo and T2 fast spin echo with fat saturation, sagittal 3-D FLASH with fat saturation; coronal T1 spin echo and PD fast spin echo with fat saturation, and axial T1 spin echo and PD fast spin echo with fat saturation through the knee. Post-contrast axial, coronal, and sagittal T1 spin echo with fat saturation through the knee. COMPARISON: [facility], MR, MR KNEE RT WO/W CON, 10/08/2024, 8:17. FINDINGS: Image quality: Excellent. Menisci: In the medial meniscus, there is complex tear of the posterior horn, extending to the meniscus body. Near maceration of the posterior horn. Marked extrusion of the medial meniscus body. Multiple small parameniscal cyst about the posterior horn. In the lateral meniscus, there is horizontal longitudinal tear of the meniscus body, extending to the anterior horn. Small intrameniscal cyst within the meniscus body of the lateral meniscus. No extrusion of the lateral meniscus body. Cruciate ligaments: The anterior and posterior cruciate ligaments appear intact. Medial structures: The medial collateral ligament appears intact. The posterior oblique ligament, semimembranosus tendon insertions, and oblique popliteal liagment, and meniscocapsular junction appear intact. Visualized portions of the pes anserinus tendons appear normal. No abnormal bursal fluid. Lateral structures: The biceps femoris tendon is intact. Mild sprain of the proximal fibular collateral ligament. The popliteus tendon and muscle are unremarkable. The iliotibial band is intact. Anterior structures: The distal quadriceps tendon is intact. The patellar tendon is intact. Superolateral Hoffa's fat pad edema, raising concern for patellar maltracking. The alignment of the patellofemoral compartment is anatomic. The medial and lateral patellofemoral ligaments are intact. Bones and cartilage: The cartilage of the patellofemoral compartments are well maintained. In the medial compartment, the cartilage is grossly well maintained. In the lateral compartment, there is mild chondral irregularity in the lateral tibial plateau, with mild subchondral marrow edema. No acute fracture. Joint space: Trace knee effusion. Moderate sized popliteal cyst. Popliteal vasculature is unremarkable. No intra-articular body. No suspicious soft tissue mass. IMPRESSION: 1. Tear of the medial and lateral meniscus with small parameniscal and intrameniscal cysts. 2. Findings concerning for patellar maltracking. 3. Mild chondrosis of the lateral compartment. 4. No suspicious soft tissue mass. Dictated by: Laury Rehman M.D. on 10/09/2024 at 10:34 Approved by: Laury Rehman M.D. on 10/09/2024 at 10:46
== END ==
PROVIDERS: PCP Internal Medicine; Referring Provider Orthopaedic Surgery Foot and Ankle Surgery; Visit Provider Orthopaedic Surgery Foot and Ankle Surgery
DX: S83.241A Other tear of medial meniscus, current injury, right knee, initial encounter (principal); S83.281A Other tear of lateral meniscus, current injury, right knee, initial encounter; M79.4 Hypertrophy of (infrapatellar) fat pad; M94.261 Chondromalacia, right knee; M25.461 Effusion, right knee; S83.242A Other tear of medial meniscus, current injury, left knee, initial encounter; S83.282A Other tear of lateral meniscus, current injury, left knee, initial encounter; M23.052 Cystic meniscus, posterior horn of lateral meniscus, left knee; M23.062 Cystic meniscus, other lateral meniscus, left knee; S83.422A Sprain of lateral collateral ligament of left knee, initial encounter; M71.22 Synovial cyst of popliteal space [Baker], left knee; X58.XXXA Exposure to other specified factors, initial encounter
CPT/HCPCS: 73723; A9579